=== PATIENT | male | born 1955 | race Caucasian/White ===

== ENCOUNTER → 2016-09-26 | Outpatient (CLI) | payer BC ==
--- NOTE | 2016-09-26 18:29 | CT ---
EXAMINATION TYPE: CT lumbar spine wo con DATE OF EXAM: 09/26/2016 5:55 PM COMPARISON: NONE HISTORY: Low back pain x [address] DLP: 980.00 mGycm Automated exposure control for dose reduction was used. Unenhanced CT of the lumbar spine was performed. Bone and soft tissue window settings are submitted as well as coronal and sagittal reconstructions. The lumbar vertebra have normal alignment. There is no significant disc space narrowing. There is min or spurring of the endplates anteriorly at L2-3 L3-4. The facet joints are intact. There is no compre ssion fracture. There is no spondylolysis. There is mild posterior disc bulging at L2-3 L3-4 L4-5 wit hout significant impingement on the spinal canal. There is no spinal stenosis. There is no lumbar par aspinal mass. Sacroiliac joints are normal. IMPRESSION: Mild spondylotic changes with posterior multilevel disc bulging. No spinal stenosis. No fracture.
== END | disposition home or self-care (01) ==
LOC: RADCTMAIN 17:23
PROVIDERS: ATTEND Family Medicine
DX: M51.26 Other intervertebral disc displacement, lumbar region (principal); M47.816 Spondylosis without myelopathy or radiculopathy, lumbar region
CPT/HCPCS: 72131

== ENCOUNTER → 2016-11-08 | Outpatient (CLI) | payer BC ==
--- NOTE | 2016-11-08 13:59 | NM ---
EXAMINATION TYPE: NM bone scan whole body DATE OF EXAM: 11/08/2016 1:30 PM COMPARISON: Plain films dated 04/04/[address] lumbar spine 09/26/2016 HISTORY: Abnormal plain film radiograph with sclerosis right hemisacrum. Back pain. Delayed whole-body scanning was performed following the injection of 24.6 mCi Tc 99m MDP. Images acq uired 3 hours post injection. FINDINGS: Mild degenerative uptake is seen about the shoulders, sternoclavicular joints, thoracic and lumbar sp alec as well as the left wrist and bilateral knees. No intense uptake is seen to suggest metastatic d isease or fracture. IMPRESSION: Degenerative uptake as discussed.
== END | disposition home or self-care (01) ==
LOC: RADNMMAIN 09:55
PROVIDERS: ATTEND Psychiatry & Neurology Neurology
DX: M40.56 Lordosis, unspecified, lumbar region (principal)
CPT/HCPCS: 78306; A9503

== ENCOUNTER → 2020-02-17 | Outpatient (CLI) | payer BC | END | disposition home or self-care (01) | LOC: LABWHC1 12:33 | PROVIDERS: ATTEND Physician Assistant | DX: M25.572 Pain in left ankle and joints of left foot (principal); M79.672 Pain in left foot; S92.002D Unspecified fracture of left calcaneus, subsequent encounter for fracture with routine healing | CPT/HCPCS: 36415; 82306 ==

== ENCOUNTER → 2020-04-07 | Outpatient (CLI) | payer BC | END | disposition home or self-care (01) | LOC: LABWHC1 08:13 | PROVIDERS: ATTEND Physician Assistant | DX: M79.672 Pain in left foot (principal); S92.002D Unspecified fracture of left calcaneus, subsequent encounter for fracture with routine healing; M25.572 Pain in left ankle and joints of left foot | CPT/HCPCS: 36415; 82306 ==

== ENCOUNTER → 2021-05-19 | Outpatient (CLI) | payer BC ==
--- NOTE | 2021-05-19 09:21 | CT ---
EXAMINATION TYPE: CT ankle LT wo con DATE OF EXAM: 05/19/2021 COMPARISON: None HISTORY: S92.002D Fx L calcaneous, M25.572 Pain L ankle/quan Unenhanced CT of the left ankle with reconstruction imaging. TECHNIQUE: Unenhanced CT of the left ankle was performed with bone and soft tissue window settings babcock bmitted in the axial coronal and sagittal planes. At a separate workstation 3-D TR imaging was obtai nelly. FINDINGS: There is bony osteopenia noted possibly from disuse. I do not see evidence for an acute displaced jarocho caneal fracture. There appears to be healed fracture involving the lateral portion of the os calcis. Osseous structures about the ankle are free of fracture. There is degenerative narrowing involving th e talocalcaneal joint spaces. Mild lateral soft tissue swelling seen. IMPRESSION: 1. No acute fractures noted about the left ankle. Healed fracture lateral margin of the os calcis.
== END | disposition home or self-care (01) ==
LOC: RADCTMAIN 07:00
PROVIDERS: ATTEND Podiatrist
DX: M25.572 Pain in left ankle and joints of left foot (principal)

== ENCOUNTER 2021-07-14 11:00 | Day surgery (SDC) | payer BC ==
[2021-07-12 09:43] VITALS: BMI 28.5
[~2021-07-14 11:00] MED LIST: DEXAMETHASONE SOD PHOSPHATE 4 MG/ML 1 ML VIAL IV ONE; HYDROmorphone 0.5 MG/0.5 ML SYRINGE IVP PRN; LACTATED RINGERS 1,000 ML IV SCH; ONDANSETRON 4 MG/2 ML VIAL IVP ONE
[2021-07-14] MEDS ORDERED: fentaNYL (PF) 50 MCG/ML 5 ML AMP IVP ONE (12:26)
[2021-07-14] MEDS ORDERED: MIDAZOLAM 2 MG/2 ML VIAL IVP ONE (12:26)
[2021-07-14] MEDS ORDERED: LIDOCAINE 1% INJ 10MG/ML (20 ML MDV) ONE (12:49)
[2021-07-14] MEDS ORDERED: PROPOFOL 10 MG/ML 20 ML VIAL IV ONE (12:49)
[2021-07-14] MEDS ORDERED: fentaNYL (PF) 50 MCG/ML 2 ML AMP ONE (12:49)
[2021-07-14] MEDS ORDERED: MIDAZOLAM 2 MG/2 ML VIAL ONE (12:49)
[2021-07-14] MEDS ORDERED: SODIUM CHLORIDE 0.9% (PF) 10 ML VIAL ONE (12:49)
[2021-07-14] MEDS ORDERED: ROPIVACAINE 5 MG/ML 30 ML VIAL ONE (12:49)
--- NOTE | 2021-07-14 13:47 | P.ANPRN ---
Procedure Note - Anesthesia - Nerve Block Performed Left Adductor Canal Time Out Performed: Yes (:) Date of Procedure: 07/14/21 Procedure Start Time: Procedure Stop Time: : Location of Patient: PreOp Indication: Acute Post-Operative Pain, Requested by Surgeon (Dr Cohen) Sedation Type: Sedate with meaningful contact maintained Preparation: Sterile Prep Position: Supine Catheter: None Needle Types: Pajunk Needle Gauge: 21 Ultrasound used to visualize needle placement: Yes Ultrasound used to observe medication spread: Yes Injectate: 0.5% Ropivacaine (see comment for volume) (15cc + 5 cc PF Normal saline) Blood Aspirated: No Pain Paresthesia on Injection Noted: No Resistance on Injection: Normal Image Stored and Saved: Yes Events: Uneventful and Well Tolerated
--- NOTE | 2021-07-14 13:49 | P.ANPRN ---
Procedure Note - Anesthesia - Nerve Block Performed Left Popliteal Time Out Performed: Yes Date of Procedure: 07/14/21 Procedure Start Time: 12:36 Procedure Stop Time: 12:45 Location of Patient: PreOp Indication: Acute Post-Operative Pain, Requested by Surgeon ( ) Sedation Type: Sedate with meaningful contact maintained Preparation: Sterile Prep Position: Right Lateral Catheter: None Needle Types: Pajunk Needle Gauge: 21 Ultrasound used to visualize needle placement: Yes Ultrasound used to observe medication spread: Yes Injectate: 0.5% Ropivacaine (see comment for volume) (15cc + 5 cc PFNormal saline) Blood Aspirated: No Pain Paresthesia on Injection Noted: No Resistance on Injection: Normal Image Stored and Saved: Yes Events: Uneventful and Well Tolerated
[2021-07-14 14:27] VITALS: TEMP 97
--- NOTE | 2021-07-14 14:48 | P.OP ---
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 The patient was then brought into the operating room and placed on table supine position. Timeout was taken to confirm correct patient identifiers, correct site of surgery, and correct procedure. When all staff in the room were in agreement with the timeout, the patient was induced and placed under general anesthesia. A well-padded tourniquet was placed on the left midcalf. A bump was placed underneath the left hip to internally rotate the left leg and then the left leg was prepped and draped in usual manner. The leg was exsanguinated with a Esmarch bandage and the tourniquet inflated to 250 mmHg. Attention was directed over the sinus tarsi area of the left foot where a curved incision was made to allow for exposure. The incision was deepened down to the subcutaneous tissue careful to identify, avoid, and retract any neurovascular structures and cauterize any bleeding vessels. Blunt dissection was then continued down to the subtalar joint capsule which was then incised sharply to expose the joint. Utilizing a combination of various joint preparation instruments, the articular cartilage and subchondral bone were stripped of the surfaces of the talar dome as well as the conjoining surfaces of the tibia. Once debridement was adequate the wound is irrigated thoroughly irrigated with antibiotic saline. Both joint surfaces were aggressively fenestrated. Then live cell DBM was placed between the arthrodesis segments. Under fluoroscopic visualization guidewires for the 7.0 mm cannulated screws were inserted in the posterior plantar aspect of the calcaneus and advanced distally superiorly and slightly medial across the subtalar joint into the talar body. 7.0 mm cannulated screw was inserted across the guidewire and then tightened until the head was fully seated into the calcaneus. A second guidewire was placed parallel to the first and slightly superior. And then another 7.0 mm cannulated screw was inserted and advanced until the distal threads were across the subtalar joint and the threaded head engaged the calcaneus. Fluoroscopic imaging showed that there was proper placement of the screws and no visible gapping at the subtalar joint. The subtalar joint was a lso stressed under live fluoroscopy and there was no motion noted. The wound is then thoroughly irrigated with antibiotic saline. The capsule was closed with 0 Vicryl. Subcutaneous closure was done with 4-0 Monocryl. Skin closure was done with karon. An Arthrex jumpstart dressing was placed over all incisions and then a bulky dry dressings applied to the left foot and ankle. The tourniquet was released and capillary refill return to all digits on the left foot. The patient was then placed in a well-padded, well molded plaster posterior mold/sugar tong splint. Ankle was held in neutral position as the splint dried. Then anesthesia was reversed and the patient was taken recovery with vital signs stable.
[2021-07-14 15:26] VITALS: RESP 16
[2021-07-14 15:51] VITALS: BP 131/78; PULSE 58
== END 2021-07-14 16:38 | disposition home or self-care (01) ==
LOC: OR 11:00
PROVIDERS: ATTEND Podiatrist
DX: S92.002A Unspecified fracture of left calcaneus, initial encounter for closed fracture (principal); W17.89XA Other fall from one level to another, initial encounter; B02.29 Other postherpetic nervous system involvement; I10 Essential (primary) hypertension; I25.2 Old myocardial infarction; E78.5 Hyperlipidemia, unspecified; Z88.0 Allergy status to penicillin; Z79.899 Other long term (current) drug therapy; Z87.891 Personal history of nicotine dependence
CPT/HCPCS: 28725; 64447; 64445; 76942; C1713; J2250; J1100; J0690; J2405; J2001; J3010 ×2; J2795; J2704

== ENCOUNTER → 2021-11-25 | Outpatient (CLI) | payer BC ==
--- NOTE | 2021-11-26 08:07 | CT ---
EXAMINATION TYPE: CT ankle LT wo con DATE OF EXAM: 11/25/2021 COMPARISON: 05/19/2021 HISTORY: Left ankle pain, old fracture left calcaneous CT DLP: 202.3 mGycm Automated exposure control for dose reduction was used. Contrast: None Technique: Axial images 2 mm thick sections. Reconstructed images in the coronal and sagittal plane. 3-D reconstructive images were performed on a separate computer by technologist are presented FINDINGS: No acute displaced fractures are identified. There is an old calcaneal fracture with 2 pins transvers ing into the talus. No suspicious lucency adjacent to the appendix is evident. No suspicious cortical erosions. There is some osteopenia through the calcaneus and talus. There may be some minimal superf icial soft tissue swelling laterally. Deeper soft tissues as visualized appear unremarkable on CT exa m. IMPRESSION: 1. MINIMAL LATERAL SUPERFICIAL SOFT TISSUE SWELLING LATERAL MALLEOLUS. 2. INTERVAL ARTHRODESIS BETWEEN THE CALCANEUS AND TALUS.
== END | disposition home or self-care (01) ==
LOC: RADCTMAIN 07:35
PROVIDERS: ATTEND Podiatrist
DX: M79.89 Other specified soft tissue disorders (principal); Z98.1 Arthrodesis status